=== PATIENT | female | born 1980 | race Caucasian/White ===

== ENCOUNTER 2018-05-09 19:49 | Emergency (ER) | payer BC, MEDICAID ==
[2018-05-09] MEDS ORDERED: Alum Hydroxide/Mag Hydroxide 15 ML, Lidocaine 2% 15 ML PO ONE ×2 (19:59)
[2018-05-09] MEDS ORDERED: Ondansetron 8 MG Tab.DIS PO ONE (19:59)
[2018-05-09] MEDS ORDERED: LORazepam 2 MG/ML SDV IM ONE (20:20)
[2018-05-09] MEDS ORDERED: diphenhydrAMINE 50 MG/ML SDV IM ONE (20:20)
[2018-05-09] MEDS ORDERED: Pantoprazole 40 MG Tab.CR PO STA (20:21)
[2018-05-09] MEDS ORDERED: Sodium Chloride 0.9% 1,000 ML IV ONE (20:37)
--- NOTE | 2018-05-09 20:37 | EDM.PDOC ---
ED HPI GENERAL MEDICAL PROBLEM - General Chief Complaint: Abdominal Pain Stated Complaint: SHORT OF BREATH Time Seen by Provider: 05/09/18 19:49 Source of Information: Reports: Patient, Family, Other (epigastric pain after drinking ETOH on empty stomach) History Limitations: Reports: Respiratory Distress (hyperventilting) - History of Present Illness INITIAL COMMENTS - FREE TEXT/NARRATIVE: 37 y.o.w.f came with her family to the ED after she was drinking ETOH and felt suddenly sick. On arrival to the ED, pt was hyperventilating and felt extremely SOB. She was tearful, pointing to her upper stomach being painful. As per SO. pt drank ETOH onto on "empty" stomach. Pt had similar symptoms about a year ago , it was not as bad as it was today. Pt vomited a few times and felt burning sensation going from her stomach to her throat. Pt denied the possibility of being . No direct trauma to her abdomen. BP 135/100 Pulse 135 RR 28 Pulse ox 93% on RA Temp 36.9 Onset Date: 05/09/18 Onset Time: 18:00 Duration: Hour(s): Location: Reports: Abdomen Quality: Reports: Ache, Burning, Dull, Pressure, Stabbing, Throbbing Severity: Moderate Improves with: Reports: None Worsens with: Reports: None Context: Reports: Other (drinking ETOH on empty stomach. 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 (see below) (none) - Related Data Allergies Allergy/AdvReac Type Severity Reaction Status Date / Time ampicillin Allergy Cannot Verified 05/09/18 20:40 Remember Home Meds: Home Meds Omeprazole 20 mg PO BEDTIME #7 cap.sr 05/09/18 [Rx] ED ROS GENERAL - Review of Systems Review Of Systems: See Below Constitutional: Reports: No Symptoms HEENT: Reports: No Symptoms Respiratory: Reports: No Symptoms Cardiovascular: Reports: No Symptoms Endocrine: Reports: No Symptoms GI/Abdominal: Reports: Abdominal Pain : Reports: No Symptoms Musculoskeletal: Reports: No Symptoms Skin: Reports: No Symptoms Neurological: Reports: No Symptoms Psychiatric: Reports: Anxiety (with hyperventiltion) Hematologic/Lymphatic: Reports: No Symptoms Immunologic: Reports: No Symptoms ED EXAM, GENERAL - Physical Exam Exam: See Below Exam Limited By: Other (anxious, Hyperventilating) General Appearance: Alert, WD/WN, Anxious, Moderate Distress Eye Exam: Bilateral Eye: Normal Inspection Ears: Normal External Exam Ear Exam: Bilateral Ear: Auricle Normal Nose: Normal Inspection Throat/Mouth: Normal Voice, No Airway Compromise, Other (dry mucosal membrane) Head: Atraumatic, Normocephalic Neck: Normal Inspection, Supple Respiratory/Chest: Lungs Clear, Normal Breath Sounds, Other (pt is hyperventilating, feels SOB) Cardiovascular: Normal Peripheral Pulses, Regular Rate, Rhythm, No Edema, No JVD , No Murmur, No Rub GI/Abdominal: Normal Bowel Sounds, Tender (epigastric tenderness, ) (Female) Exam: Deferred Rectal (Female) Exam: Deferred Back Exam: Normal Inspection, Full Range of Motion Extremities: Normal Inspection, Normal Range of Motion, Non-Tender, No Pedal Edema Neurological: Alert, Oriented, CN II-XII Intact, Normal Cognition, Normal Gait Psychiatric: Anxious (with hyperventilation) Skin Exam: Warm, Dry, Intact, Normal Color, No Rash Lymphatic: No Adenopathy Course - Vital Signs Text/Narrative:: 37 y.o.w.f came with her family to the ED after she was drinking ETOH and felt suddenly sick. On arrival to the ED, pt was hyperventilating and felt extremely SOB. She was tearful, pointing to her upper stomach being painful. As per SO. pt drank ETOH onto on "empty" stomach. Pt had similar symptoms about a year ago , it was not as bad as it was today. Pt vomited a few times and felt burning sensation going from her stomach to her throat. Pt denied the possibility of being . No direct trauma to her abdomen. BP 135/100 Pulse 135 RR 28 Pulse ox 93% on RA Temp 36.9 PE: WNWD W F, hyperventilating, SOB and epigastric pain Imaging: Not indicated Impression: ETOH gastritis, Dehydration, Hyperventilation syndrome Labs: CBC, BMP BL ETOH was 0.06 Glc 67 Tx: NRBM, Zofran, GI cocktail, Ativan, Benadryl, Protronix, NS Reexam: Pt felt better, wanted to go home Plan:" D/C with instructions Last Recorded V/S: Last Vital Signs Temp 36.8 C 05/09/18 19:49 Pulse 132 H 05/09/18 19:49 Resp 20 05/09/18 20:45 BP 106/51 L 05/09/18 20:45 Pulse Ox 100 05/09/18 20:45 - Orders/Labs/Meds Orders: Active Orders 24 hr Category Date Time Status Sodium Chloride 0.9% [Normal Saline] 1,000 ml Med 05/09/18 20:37 Active IV .BOLUS Medication Orders Sodium Chloride (Normal Saline) 1,000 mls @ 120 mls/hr IV .BOLUS ONE Stop: 05/10/18 04:56 Labs: Laboratory Tests 05/09/18 05/09/18 05/09/18 Range/Units 20:10 20:48 20:48 WBC 7.6 (4.5-12.0) X10-3/uL RBC 4.46 (3.23-5.20) x10(6)uL Hgb 14.2 (11.5-15.5) g/dL Hct 42.1 (30.0-51.3) % MCV 94.4 (80-96) fL MCH 31.7 (27.7-33.6) pg MCHC 33.6 (32.2-35.4) g/dL RDW 11.9 (11.5-15.5) % Plt Count 289 (125-369) X10(3)uL MPV 8.1 (7.4-10.4) fL Neut % (Auto) 50.0 (46-82) % Lymph % (Auto) 39.2 H (13-37) % Geary % (Auto) 6.9 (4-12) % Eos % (Auto) 3 (1.0-5.0) % Baso % (Auto) 1 (0-2) % Neut # (Auto) 3.8 (1.6-8.3) # Lymph # (Auto) 3.0 (0.6-5.0) # Geary # (Auto) 0.5 (0.0-1.3) # Eos # (Auto) 0.3 (0.0-0.8) # Baso # (Auto) 0.0 (0.0-0.2) # Sodium 141 (135-145) mmol/L Potassium 3.6 (3.5-5.3) mmol/L Chloride 107 (100-110) mmol/L Carbon Dioxide 24 (21-32) mmol/L BUN 8 (7-18) mg/dL Creatinine 0.8 (0.55-1.02) mg/dL Est Cr Clr Drug Dosing TNP Estimated GFR (MDRD) > 60 (>60) BUN/Creatinine Ratio 10.0 (9-20) Glucose 67 L (80-116) mg/dL Calcium 9.9 (8.6-10.2) mg/dL Urine Color Yellow (YELLOW) Urine Appearance Clear (CLEAR) Urine pH 5.0 (5.0-6.5) Ur Specific [place] 1.005 L (1.010-1.025) Urine Protein Negative (NEGATIVE) mg/dL Urine Glucose (UA) 100 H (NEGATIVE) mg/dL Urine Ketones Negative (NEGATIVE) mg/dL Urine Occult Blood Trace (NEGATIVE) Urine Nitrite Negative (NEGATIVE) Urine Bilirubin Negative (NEGATIVE) Urine Urobilinogen Normal (NEGATIVE) mg/dL Ur Leukocyte Esterase Negative (NEGATIVE) Urine RBC 5-10 (0) Urine WBC 0-5 (0) Ur Squamous Epith Cells Rare (NS,R,O) Urine Bacteria Occasional H (NS) Ethyl Alcohol (<0.03) % 05/09/18 Range/Units 20:48 WBC (4.5-12.0) X10-3/uL RBC (3.23-5.20) x10(6)uL Hgb (11.5-15.5) g/dL Hct (30.0-51.3) % MCV (80-96) fL MCH (27.7-33.6) pg MCHC (32.2-35.4) g/dL RDW (11.5-15.5) % Plt Count (125-369) X10(3)uL MPV (7.4-10.4) fL Neut % (Auto) (46-82) % Lymph % (Auto) (13-37) % Geary % (Auto) (4-12) % Eos % (Auto) (1.0-5.0) % Baso % (Auto) (0-2) % Neut # (Auto) (1.6-8.3) # Lymph # (Auto) (0.6-5.0) # Geary # (Auto) (0.0-1.3) # Eos # (Auto) (0.0-0.8) # Baso # (Auto) (0.0-0.2) # Sodium (135-145) mmol/L Potassium (3.5-5.3) mmol/L Chloride (100-110) mmol/L Carbon Dioxide (21-32) mmol/L BUN (7-18) mg/dL Creatinine (0.55-1.02) mg/dL Est Cr Clr Drug Dosing Estimated GFR (MDRD) (>60) BUN/Creatinine Ratio (9-20) Glucose (80-116) mg/dL Calcium (8.6-10.2) mg/dL Urine Color (YELLOW) Urine Appearance (CLEAR) Urine pH (5.0-6.5) Ur Specific [place] (1.010-1.025) Urine Protein (NEGATIVE) mg/dL Urine Glucose (UA) (NEGATIVE) mg/dL Urine Ketones (NEGATIVE) mg/dL Urine Occult Blood (NEGATIVE) Urine Nitrite (NEGATIVE) Urine Bilirubin (NEGATIVE) Urine Urobilinogen (NEGATIVE) mg/dL Ur Leukocyte Esterase (NEGATIVE) Urine RBC (0) Urine WBC (0) Ur Squamous Epith Cells (NS,R,O) Urine Bacteria (NS) Ethyl Alcohol 0.06 H (<0.03) % Meds: Medications Generic Name Dose Route Start Last Admin Trade Name Freq PRN Reason Stop Dose Admin Sodium Chloride 1,000 mls @ 120 mls/hr 05/09/18 20:37 Normal Saline IV 05/10/18 04:56 .BOLUS ONE Discontinued Medications Generic Name Dose Route Start Last Admin Trade Name Freq PRN Reason Stop Dose Admin Al Hydroxide/Mg Hydroxide 15 0 ml 05/09/18 19:59 05/09/18 20:08 ml/ Lidocaine HCl 15 ml PO 05/09/18 20:00 30 ml ONETIME ONE Administration Diphenhydramine HCl 25 mg 05/09/18 20:20 05/09/18 20:41 Benadryl IM 05/09/18 20:21 25 mg ONETIME ONE Administration Ketorolac Tromethamine 30 mg 05/09/18 22:13 05/09/18 22:20 Toradol IVPUSH 05/09/18 22:14 30 mg ONETIME ONE Administration Lorazepam 1 mg 05/09/18 20:20 05/09/18 20:40 Ativan IM 05/09/18 20:21 1 mg ONETIME ONE Administration Ondansetron HCl 8 mg 05/09/18 19:59 05/09/18 20:00 Zofran Odt PO 05/09/18 20:00 8 mg ONETIME ONE Administration Pantoprazole Sodium 40 mg 05/09/18 20:21 05/09/18 20:40 Protonix PO 05/09/18 20:22 40 mg ONETIME STA Administration Departure - Departure Time of Disposition: 22:39 Disposition: Home, Self-Care 01 Condition: Good Clinical Impression: Anxiety hyperventilation Gastritis Qualifiers: Gastritis type: alcoholic Chronicity: acute Gastritis bleeding: without bleeding Qualified Code(s): K29.20 - Alcoholic gastritis without bleeding - Discharge Information Prescriptions: Omeprazole 20 mg PO BEDTIME #7 cap.sr Instructions: Gastritis, Adult, [id number], Panic Attack, [id number] Referrals: Shalonda Campoverde NP [Primary Care Provider] - Forms: ED Department Discharge Additional Instructions: Please always eat some food before drinking ETOH beverages. Please advance diet as tolerated, Omeprazole for 1 week, increase water intake. Please follow up regular , come back f your symptoms get worse acutely - My Orders Last 24 Hours: My Active Orders 05/09/18 20:37 Sodium Chloride 0.9% [Normal Saline] 1,000 ml IV .BOLUS - Assessment/Plan Last 24 Hours: My Active Orders 05/09/18 20:37 Sodium Chloride 0.9% [Normal Saline] 1,000 ml IV .BOLUS
[2018-05-09] MEDS ORDERED: Ketorolac 30 MG/ML SDV IVPUSH ONE (22:13)
[2018-05-10] MEDS ORDERED: Sodium Chloride 0.9% 10 ML Syringe FLUSH PRN (02:44)
== END 2018-05-09 23:06 | disposition home or self-care (01) ==
LOC: FB.ED 19:49
DX: K29.20 Alcoholic gastritis without bleeding (principal); F45.8 Other somatoform disorders; E86.0 Dehydration; F41.9 Anxiety disorder, unspecified; Z88.1 Allergy status to other antibiotic agents
CPT/HCPCS: 36415; 80048; 81001; 85025; 96361; 96372; 96374; 99284; A9270; G0480; J1200; J1885; J2060; J7030

== ENCOUNTER 2021-02-20 02:29 | Emergency (ER) | payer BC, OTHER, SELFPAY ==
--- NOTE | 2021-02-20 02:39 | EDM.PDOC ---
ED HPI GENERAL MEDICAL PROBLEM - General Stated Complaint: chest pain Time Seen by Provider: 02/20/21 02:36 Source of Information: Reports: Patient History Limitations: Reports: No Limitations - History of Present Illness INITIAL COMMENTS - FREE TEXT/NARRATIVE: 40-year-old female who reports she was in bed trying to sleep and she developed a sharp and tight pain in her lower chest and epigastrium that radiated through to her back at approximately 1:45 AM. It was quite severe initially. The pain was a 10/10. It was associated with some nausea initially and she had some dry heaving and the pain seemed to improve slightly and then it seemed to come back and her brought her to the emergency department via private vehicle. She had had no symptoms prior to bed. She had been eating and drinking normally. She had felt well all through the day prior to this. She has had this happen several other times in the past with the last episode being approximately 2 years ago and she was seen in this emergency department following that. She reports that no one has really found the etiology of this. Does have Raynaud ons and has had some tachycardia and has recently followed up with a channel cementer outsole machine in regard to this tachycardia and a Biopatch and the channel cementer outsole machine felt that there was nothing of concern. Currently, the patient is reporting that her pain is a 3-4/10 and seems to be improving now. There are no other associated signs or symptoms. There are no other modifying factors. Onset: Today (1:45 AM) Duration: Improving Location: Reports: Chest, Abdomen, Back Quality: Reports: Sharp, Other (Tightening) Severity: Moderate (to severe) Improves with: Reports: None Worsens with: Reports: Breathing, Movement Context: Reports: Other (As above) Associated Symptoms: Reports: No Other Symptoms (Except as above) Treatments COLOR COATER: Reports: Other (see below) (Nothing.) Chest Pain Score (Numeric/FACES): 8 - Related Data Allergies Allergy/AdvReac Type Severity Reaction Status Date / Time ampicillin Allergy Cannot Verified 05/09/18 20:40 Remember Home Meds: Home Meds Omeprazole 20 mg PO BEDTIME #7 cap.sr 05/09/18 [Rx] Omeprazole 40 mg PO ACBREAKFAST #30 cap.sr 02/20/21 [Rx] Past Medical History Musculoskeletal History: Reports: Other (See Below) (Raynaud's) - Past Surgical History GI Surgical History: Reports: Cholecystectomy Female Surgical History: Reports: Tubal Ligation, Other (See Below) Other Female Surgeries/Procedures: uterine ablasion Social & Family History - Tobacco Use Tobacco Use Status *Q: Current Every Day Tobacco User - Alcohol Use Alcohol Use History: Yes Alcohol Use Frequency: Weekly - Living Situation & Occupation Living situation: Reports: , with Spouse 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 Denies: Fever, Chills, Malaise HEENT: Denies: Throat Pain, Throat Swelling Respiratory: Denies: Shortness of Breath, Cough Cardiovascular: Reports: Chest Pain. Denies: Lightheadedness GI/Abdominal: Reports: Abdominal Pain, Nausea, Vomiting : Denies: Dysuria, Flank Pain Musculoskeletal: Reports: Back Pain. Denies: Neck Pain, Shoulder Pain Skin: Denies: Diaphoresis, Rash Neurological: Denies: Confusion, Dizziness Psychiatric: Reports: Anxiety. Denies: Confusion Hematologic/Lymphatic: Denies: Easy Bleeding, Easy Bruising ED EXAM, GENERAL - Physical Exam Exam: See Below Exam Limited By: No Limitations General Appearance: Alert, Mild Distress, Obese Eye Exam: Bilateral Eye: EOMI, Normal Inspection (Sclera are anicteric) Ears: Normal External Exam, Hearing Grossly Normal Ear Exam: Bilateral Ear: Auricle Normal Nose: Normal Inspection, Normal Mucosa, No Blood Throat/Mouth: Normal Inspection Head: No: Sinus Tenderness Neck: Normal Inspection, Supple, Non-Tender, Full Range of Motion Respiratory/Chest: No Respiratory Distress, Lungs Clear, Normal Breath Sounds, No Accessory Muscle Use, Chest Non-Tender Cardiovascular: Normal Peripheral Pulses, Regular Rate, Rhythm, No Murmur Peripheral Pulses: 2+: Radial (L), Radial (R), Dorsalis Pedis (L), Dorsalis Pedis (R) GI/Abdominal: Normal Bowel Sounds, Soft, Tender (In epigastrium) Back Exam: Normal Inspection, Full Range of Motion Extremities: Normal Inspection, Normal Range of Motion, Non-Tender, No Pedal Edema, Normal Capillary Refill Neurological: Alert, Oriented, CN II-XII Intact, Normal Cognition, No Motor/Sensory Deficits Psychiatric: Normal Affect Skin Exam: Warm, Dry, Intact, Normal Color, No Rash #1 Interpretation EKG Date: 02/20/21 Time: 02:35 Rhythm: NSR Rate (Beats/Min): 99 [place]: Normal P-Wave: Present QRS: Normal ST-T: Normal QT: Normal Comparison: NA - No Prior EKG Course - Vital Signs Last Recorded V/S: Last Vital Signs Temp 36.6 C 02/20/21 02:39 Pulse 106 H 02/20/21 02:48 Resp 18 02/20/21 02:48 BP 141/74 H 02/20/21 02:48 Pulse Ox 100 02/20/21 02:48 - Orders/Labs/Meds Orders: Active Orders 24 hr Category Date Time Status Sodium Chloride 0.9% [Saline Flush] Med 02/20/21 02:56 Active 10 ml FLUSH ASDIRECTED PRN Peripheral IV Insertion Adult [OM.PC] Routine Oth 02/20/21 02:56 Ordered EKG 12 Lead [EK] Routine Ther 02/20/21 02:57 Ordered Medication Orders Sodium Chloride (Sodium Chloride 0.9% 10 Ml Syringe) 10 ml FLUSH ASDIRECTED PRN PRN Reason: Keep Vein Open Last Admin: 02/20/21 03:05 Dose: 10 ml Documented by: KHLOE Labs: Laboratory Tests 02/20/21 02/20/21 02/20/21 Range/Units 02:35 02:35 02:35 WBC 7.9 (3.0-10.3) x10-3/uL RBC 4.10 (3.60-5.20) x10(6)uL Hgb 12.6 (11.4-15.5) g/dL Hct 37.9 (34.2-48.2) % MCV 92.6 (76.7-100.5) fL MCH 30.7 (23.9-33.9) pg MCHC 33.2 (31.9-34.8) g/dL RDW 12.4 (12.3-16.5) % Plt Count 281 (151-488) x10(3)uL MPV 7.7 (7.1-12.4) fL Neut % (Auto) 40.8 (30.8-76.2) % Lymph % (Auto) 46.9 (18.4-52.1) % [place] % (Auto) 5.7 (4.4-15.7) % Eos % (Auto) 5.7 (0.6-8.1) % Baso % (Auto) 0.9 (0.2-1.5) % Neut # (Auto) 3.2 (1.5-6.3) x10-3/uL Lymph # (Auto) 3.7 (1.0-4.4) x10-3/uL Warrick # (Auto) 0.5 (0.3-1.0) x10-3/uL Eos # (Auto) 0.4 (0.0-0.8) x10-3/uL Baso # (Auto) 0.1 (0.0-0.1) x10-3/uL D-Dimer, Quantitative 0.40 (0.0-0.59) mg/LFEU Sodium 140 (135-145) mmol/L Potassium 4.1 (3.5-5.3) mmol/L Chloride 106 (100-110) mmol/L Carbon Dioxide 27 (21-32) mmol/L BUN 11 (7-18) mg/dL Creatinine 0.8 (0.55-1.02) mg/dL Est Cr Clr Drug Dosing 81.53 mL/min Estimated GFR (MDRD) > 60 (>60) BUN/Creatinine Ratio 13.8 (9-20) Glucose 95 (80-116) mg/dL Calcium 8.5 L (8.6-10.2) mg/dL Magnesium 1.8 (1.8-2.5) mg/dL Total Bilirubin 0.5 (0.1-1.3) mg/dL AST 49 H (5-25) IU/L ALT 34 (12-36) U/L Alkaline Phosphatase 56 (56-112) IU/L Troponin I (4.0-60.3) pg/mL Total Protein 7.0 (6.0-8.0) g/dL Albumin 3.8 (3.5-5.2) g/dL Globulin 3.2 g/dL Albumin/Globulin Ratio 1.2 Lipase (73-393) U/L 02/20/21 02/20/21 Range/Units 02:35 04:28 WBC (3.0-10.3) x10-3/uL RBC (3.60-5.20) x10(6)uL Hgb (11.4-15.5) g/dL Hct (34.2-48.2) % MCV (76.7-100.5) fL MCH (23.9-33.9) pg MCHC (31.9-34.8) g/dL RDW (12.3-16.5) % Plt Count (151-488) x10(3)uL MPV (7.1-12.4) fL Neut % (Auto) (30.8-76.2) % Lymph % (Auto) (18.4-52.1) % [place] % (Auto) (4.4-15.7) % Eos % (Auto) (0.6-8.1) % Baso % (Auto) (0.2-1.5) % Neut # (Auto) (1.5-6.3) x10-3/uL Lymph # (Auto) (1.0-4.4) x10-3/uL [place]rick # (Auto) (0.3-1.0) x10-3/uL Eos # (Auto) (0.0-0.8) x10-3/uL Baso # (Auto) (0.0-0.1) x10-3/uL D-Dimer, Quantitative (0.0-0.59) mg/LFEU Sodium (135-145) mmol/L Potassium (3.5-5.3) mmol/L Chloride (100-110) mmol/L Carbon Dioxide (21-32) mmol/L BUN (7-18) mg/dL Creatinine (0.55-1.02) mg/dL Est Cr Clr Drug Dosing mL/min Estimated GFR (MDRD) (>60) BUN/Creatinine Ratio (9-20) Glucose (80-116) mg/dL Calcium (8.6-10.2) mg/dL Magnesium (1.8-2.5) mg/dL Total Bilirubin (0.1-1.3) mg/dL AST (5-25) IU/L ALT (12-36) U/L Alkaline Phosphatase (56-112) IU/L Troponin I < 4.0 L < 4.0 L (4.0-60.3) pg/mL Total Protein (6.0-8.0) g/dL Albumin (3.5-5.2) g/dL Globulin g/dL Albumin/Globulin Ratio Lipase 199 (73-393) U/L Meds: Medications Generic Name Dose Route Start Last Admin Trade Name Pradip PRN Reason Stop Dose Admin Sodium Chloride 10 ml 02/20/21 02:56 02/20/21 03:05 Sodium Chloride 0.9% 10 Ml Syringe FLUSH 10 ml ASDIRECTED PRN Administration Keep Vein Open Discontinued Medications Generic Name Dose Route Start Last Admin Trade Name Pradip PRN Reason Stop Dose Admin Aspirin 324 mg 02/20/21 02:58 02/20/21 03:02 Aspirin 81 Mg Tab.Chew PO 02/20/21 02:59 324 mg ONETIME ONE Administration Metoclopramide HCl 10 mg 02/20/21 02:58 02/20/21 03:02 Metoclopramide 10 Mg/2 Ml Sdv IVPUSH 02/20/21 02:59 10 mg ONETIME ONE Administration - Re-Assessments/Exams Free Text/Narrative Re-Assessment/Exam: 02/20/21 04:22: White blood cell count is 7.9. Hemoglobin is 12.6. Lately count was normal. Sodium is 140. Potassium is 4.1. BUN is 11 and creatinine is 0.8. Glucose is 95. Magnesium is 1.8. LFTs are normal. Lipase is normal. D-dimer is normal. Troponin is less than 4.0. EKG shows a normal sinus rhythm with a normal axis and minimal intervals. It is a normal EKG. Patient has received aspirin 324 mg orally and Reglan 10 mg IV. Even prior to this, the patient's pain had been going away. Her pain is now essentially gone. I repeated the patient's troponin and 2 hours post initial troponin. 02/20/21 04:50: The patient is awake and alert. She reports that she feels the remnant of the pain as a soreness in her epigastrium area. Her repeat troponin is less than 4.0. I am unsure why she had the episode of pain it does not appear to be related to her heart. Her d-dimer was also negative and I feel that this essentially rules out PE as well. The patient reports she has been on omeprazole in the past for reflux. Her symptoms are consistent with GERD and there is a history of autoimmune disorders in her family including scleroderma. I will ice the patient on omeprazole he milligrams daily and she is to follow-up with her primary provider by next week. Precautions and reasons for return to the emergency department discussed with the patient and with her while the patient was in the emergency Department and were detailed in the patient's discharge instructions. Departure - Departure Time of Disposition: 05:00 Disposition: Home, Self-Care 01 Condition: Good Clinical Impression: GERD (gastroesophageal reflux disease) Qualifiers: Esophagitis presence: esophagitis presence not specified Qualified Code(s): K21.9 - Gastro-esophageal reflux disease without esophagitis Chest pain Qualifiers: Chest pain type: unspecified Qualified Code(s): R07.9 - Chest pain, unspecified Prescriptions: Omeprazole 40 mg PO ACBREAKFAST #30 cap.sr Instructions: Nonspecific Chest Pain, Adult, [id number], Food Choices for Gastroesophageal Reflux Disease, Adult, [id number], Gastroesophageal Reflux Disease, Adult, [id number] Referrals: Shalonda Campoverde NP [Primary Care Provider] - Additional Instructions: All of your blood tests were reassuringly normal. Your EKG was normal. Your heart enzyme tests were normal on both times they were checked. I am unsure why you had the chest and abdominal pain. It is possible this represents acid reflux. Placing him back on omeprazole daily and you need follow-up with your primary provider and by this next week you will need specialist referral to possibly see a gastroenterology specialist. Back to the emergency department for worsening pain, trouble breathing, unrelenting vomiting or any other concerning signs or symptoms. Sepsis Event Note (ED) - Focused Exam Vital Signs: Vital Signs Temp Pulse Resp BP Pulse Ox 02/20/21 02:48 106 H 18 141/74 H 100 02/20/21 02:39 36.6 C 92 15 153/107 H 97 - My Orders Last 24 Hours: My Active Orders 02/20/21 02:56 Sodium Chloride 0.9% [Saline Flush] 10 ml FLUSH ASDIRECTED PRN Peripheral IV Insertion Adult [OM.PC] Routine 02/20/21 02:57 EKG 12 Lead [EK] Routine - Assessment/Plan Last 24 Hours: My Active Orders 02/20/21 02:56 Sodium Chloride 0.9% [Saline Flush] 10 ml FLUSH ASDIRECTED PRN Peripheral IV Insertion Adult [OM.PC] Routine 02/20/21 02:57 EKG 12 Lead [EK] Routine
[2021-02-20] MEDS ORDERED: Sodium Chloride 0.9% 10 ML Syringe FLUSH PRN (02:56)
[2021-02-20] MEDS ORDERED: Aspirin 81 MG Tab.Chew PO ONE (02:58)
[2021-02-20] MEDS ORDERED: Metoclopramide 10 MG/2 ML SDV IVPUSH ONE (02:58)
[2021-02-20] MEDS ORDERED: Pantoprazole 40 MG Tab.CR PO ONE (04:58)
== END 2021-02-20 05:12 | disposition home or self-care (01) ==
LOC: FB.ED 02:29
DX: R07.89 Other chest pain (principal); K21.9 Gastro-esophageal reflux disease without esophagitis; Z88.0 Allergy status to penicillin; Z79.899 Other long term (current) drug therapy; Z72.0 Tobacco use
CPT/HCPCS: 36415; 80053; 83690; 83735; 84484; 85025; 85379; 93005; 96374; 99285-25; A9270-GY; J2765

== ENCOUNTER 2021-03-28 10:58 | Emergency (ER) | payer BC ==
[2021-03-28] MEDS ORDERED: Acetaminophen 500 MG Tab PO STA (11:20)
[2021-03-28] MEDS ORDERED: Lidocaine 2% Viscous Solution 15 ML UD PO STA (11:20)
[2021-03-28] MEDS ORDERED: Ibuprofen 800 MG Tab PO STA (11:20)
[2021-03-28] MEDS ORDERED: Amoxicillin 500 MG Cap PO STA (11:50)
--- NOTE | 2021-03-28 11:55 | EDM.PDOC ---
ED HPI GENERAL MEDICAL PROBLEM - General Chief Complaint: General Stated Complaint: INFECTED TOOTH Time Seen by Provider: 03/28/21 11:05 Source of Information: Reports: Patient History Limitations: Reports: No Limitations - History of Present Illness INITIAL COMMENTS - FREE TEXT/NARRATIVE: Patient presented to the ED because of dental pain which started yesterday. He took OTC tylenol without relief. Left lower tooth Pain Score (Numeric/FACES): 10 - Related Data Allergies Allergy/AdvReac Type Severity Reaction Status Date / Time ampicillin Allergy Cannot Verified 03/28/21 11:55 Remember Home Meds: Home Meds Omeprazole 20 mg PO BEDTIME #7 cap.sr 05/09/18 [Rx] Omeprazole 40 mg PO ACBREAKFAST #30 cap.sr 02/20/21 [Rx] Amoxicillin 500 mg PO TID #30 capsule 03/28/21 [Rx] Past Medical History HEENT History: Reports: Impaired Vision Cardiovascular History: Reports: Angina Gastrointestinal History: Reports: GERD Musculoskeletal History: Reports: Other (See Below) (Raynaud's) - Infectious Disease History Infectious Disease History: Reports: None - Past Surgical History GI Surgical History: Reports: Cholecystectomy Social & Family History - Family History Family Medical History: No Pertinent Family History - Caffeine Use Caffeine Use: Reports: None - Living Situation & Occupation Living situation: Reports: , with Spouse 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) ED ROS GENERAL - Review of Systems Review Of Systems: See Below Constitutional: Reports: No Symptoms HEENT: Reports: Dental Pain Respiratory: Reports: No Symptoms Cardiovascular: Reports: No Symptoms Endocrine: Reports: No Symptoms GI/Abdominal: Reports: No Symptoms : Reports: No Symptoms Musculoskeletal: Reports: No Symptoms Skin: Reports: No Symptoms Neurological: Reports: No Symptoms Psychiatric: Reports: No Symptoms ED EXAM, GENERAL - Physical Exam Exam: See Below Exam Limited By: No Limitations General Appearance: Alert, No Apparent Distress Ears: Normal External Exam, Normal Canal Nose: Normal Inspection, Normal Mucosa, No Blood Throat/Mouth: Other (multiple dental caries and swollen gums) Head: Atraumatic, Normocephalic Neck: Normal Inspection, Supple, Non-Tender, Full Range of Motion Respiratory/Chest: No Respiratory Distress, Lungs Clear, Normal Breath Sounds, No Accessory Muscle Use, Chest Non-Tender Cardiovascular: Normal Peripheral Pulses, Regular Rate, Rhythm, No Edema, No Gallop, No JVD, No Murmur, No Rub GI/Abdominal: Normal Bowel Sounds, Soft, Non-Tender, No Organomegaly Back Exam: Normal Inspection, Full Range of Motion Course - Vital Signs Text/Narrative:: Amoxicillin 500 mg PO x1 Tylenol 500 mg PO x1 Ibuprofen 800 mg PO x1 Viscous lidocaine applied by me. Last Recorded V/S: Last Vital Signs Temp 37.0 C 03/28/21 11:00 Pulse 108 H 03/28/21 11:00 Resp 18 03/28/21 11:00 BP 142/88 H 03/28/21 11:00 Pulse Ox 100 03/28/21 11:00 - Orders/Labs/Meds Meds: Medications Discontinued Medications Generic Name Dose Route Start Last Admin Trade Name Pradip PRN Reason Stop Dose Admin Acetaminophen 500 mg 03/28/21 11:20 03/28/21 11:29 Acetaminophen 500 Mg Tab PO 03/28/21 11:21 500 mg NOW STA Administration Amoxicillin 500 mg 03/28/21 11:50 03/28/21 11:58 Amoxicillin 500 Mg Cap PO 03/28/21 11:51 500 mg NOW STA Administration Ibuprofen 800 mg 03/28/21 11:20 03/28/21 11:29 Ibuprofen 800 Mg Tab PO 03/28/21 11:21 800 mg NOW STA Administration Lidocaine HCl 15 ml 03/28/21 11:20 03/28/21 11:29 Lidocaine 2% Viscous Solution 15 Ml Cup PO 03/28/21 11:21 15 ml NOW STA Administration Departure - Departure Time of Disposition: 12:00 Disposition: Home, Self-Care 01 Condition: Good Clinical Impression: Pain, dental, Dental infection - Discharge Information Prescriptions: Amoxicillin 500 mg PO TID #30 capsule Instructions: Gingivitis, [id number], Dental Pain Referrals: Shalonda Campoverde NP [Primary Care Provider] - Forms: ED Department Discharge Additional Instructions: Please read discharge instructions on dental pain and infection Ibuprofen 800 mg with tylenol 1000 mg every 8 hours as needed for pain Amoxicillin 875 mg twice daily for 10 days Follow up with your dentist
== END 2021-03-28 12:00 | disposition home or self-care (01) ==
LOC: FB.ED 10:58
DX: K04.7 Periapical abscess without sinus (principal); K21.9 Gastro-esophageal reflux disease without esophagitis; Z88.0 Allergy status to penicillin; Z79.899 Other long term (current) drug therapy
CPT/HCPCS: 99282; A9270-GY

== ENCOUNTER 2023-04-23 22:44 | Emergency (ER) | payer BC ==
[2023-04-23] MEDS: Ondansetron 4 MG/2 ML SDV IVPUSH ONE (23:25)
[2023-04-23] MEDS: Morphine 4 MG/ML VIAL IVPUSH ONE (23:25)
[2023-04-23 23:31] LABS: BASOPHILS PERCENT AUTO 0.5 % (0.2-1.5); EOSINOPHILS ABSOLUTE AUTO 0.2 x10-3/uL (0.0-0.8); EOSINOPHILS PERCENT AUTO 3.2 % (0.6-8.1); HEMATOCRIT 34.4 % (34.2-48.2); HEMOGLOBIN 11.4 g/dL (11.4-15.5); LYMPHOCYTES ABSOLUTE AUTO 2.6 x10-3/uL (1.0-4.4); LYMPHOCYTES PERCENT AUTO 42.4 % (18.4-52.1); MEAN CORPUSCULAR HEMOGLOBIN 31.1 pg (23.9-33.9); MEAN CORPUSCULAR HGB CONC 33.3 g/dL (31.9-34.8); MEAN CORPUSCULAR VOLUME 93.2 fL (76.7-100.5); MEAN PLATELET VOLUME 7.3 fL (7.1-12.4); MONOCYTES ABSOLUTE AUTO 0.4 x10-3/uL (0.3-1.0); MONOCYTES PERCENT AUTO 6.9 % (4.4-15.7); NEUTROPHILS ABSOLUTE AUTO 2.8 x10-3/uL (1.5-6.3); PLATELET COUNT,PLT 275 x10(3)uL (151-488); RED BLOOD CELL COUNT 3.68 x10(6)uL (3.60-5.20); RED CELL DISTRIBUTION WIDTH 12.3 % (12.3-16.5)
[2023-04-23] MEDS: Alum Hydroxide/Mag Hydroxide 15 ML, Lidocaine 2% 15 ML PO ONE ×2 (23:31)
[2023-04-23 23:32] LABS: BLOOD UREA NITROGEN,BUN 10 mg/dL (7-18); BUN/CREATININE RATIO 14.3 (9-20); CALCIUM 8.6 mg/dL (8.6-10.2); CARBON DIOXIDE,CO2 25 mmol/L (21-32); CHLORIDE,CL 98 mmol/L (100-110); CREATININE 0.7 mg/dL (0.55-1.02); ESTIMATED GFR 111 mL/min (>60); GLUCOSE RANDOM 95 mg/dL (80-116); POTASSIUM,K 3.4 mmol/L (3.5-5.3); SODIUM,NA 135 mmol/L (135-145)
[2023-04-23 23:38] LABS: A/G RATIO 1.1; ALANINE AMINOTRANSFERASE,ALT 27 U/L (12-36); ALBUMIN 3.7 g/dL (3.5-5.2); ALKALINE PHOSPHATASE 53 IU/L (56-112); ASPARTATE AMNIOTRANSFERASE,AST 32 IU/L (5-25); BILIRUBIN TOTAL 0.2 mg/dL (0.1-1.3); PROTEIN TOTAL,TP 7.1 g/dL (6.0-8.0)
[2023-04-23] MEDS ORDERED: HYDROmorphone 2 MG/ML SDV IVPUSH ONE (23:57)
[2023-04-24] MEDS: LORazepam 2 MG/ML SDV IVPUSH ONE (00:06)
== END 2023-04-24 01:31 | disposition home or self-care (01) ==
LOC: FB.ED 22:44
DX: K29.70 Gastritis, unspecified, without bleeding (principal); F45.8 Other somatoform disorders; Z79.899 Other long term (current) drug therapy; Z88.1 Allergy status to other antibiotic agents
CPT/HCPCS: 36415; 74176; 80053; 83690; 84484; 85025; 93010; 96374; 96375; 99283; 99285-25; A9270-GY; J2060; J2270; J2405